=== PATIENT | female | born 1970 | race American Indian/Alaskan Native ===

== ENCOUNTER 2018-05-01 19:44 | Emergency (ER) | payer SELFPAY ==
[2018-05-01 20:30] VITALS: BP 173/81
--- NOTE | 2018-05-01 23:13 | XRay Report ---
FINAL REPORT PROCEDURE: XR ANKLE 2V LT TECHNIQUE: RIGHT ankle radiographs, AP and lateral views. HISTORY: ankle injury COMPARISON: No prior studies are available for comparison. FINDINGS: Fracture (s) and/or Dislocation(s): None. Alignment: Normal. Joint space(s): Normal. Soft tissues: Mild degree soft tissue swelling is noted over the medial malleolus. Bone mineralization: Normal. Foreign bodies: Normal. Calcaneal spurring: Mild degree calcaneal spurring is noted. IMPRESSION: No acute abnormality Soft tissue swelling over medial malleolus.
== END 2018-05-02 01:05 | disposition left against medical advice (07) ==
LOC: ED 19:44
DX: R22.42 Localized swelling, mass and lump, left lower limb (principal); Z53.21 Procedure and treatment not carried out due to patient leaving prior to being seen by health care provider